=== PATIENT | male | born 1980 | race Caucasian/White ===

== ENCOUNTER 2017-04-18 16:07 | Emergency (ER) | payer BC ==
[~2017-04-18] VITALS: Ht 175.3 cm; Wt 80.9 kg
[2017-04-18] MEDS ORDERED: ATIVAN1 MG PO (16:53)
[2017-04-18 17:41] VITALS: BP 115/98
== END 2017-04-18 18:04 | disposition home or self-care (01) ==
LOC: EME 16:07
DX: F10.20 Alcohol dependence, uncomplicated (principal); F17.200 Nicotine dependence, unspecified, uncomplicated
CPT/HCPCS: 99281; 99284

== ENCOUNTER 2018-06-04 23:06 | Emergency (ER) | payer BC ==
[~2018-06-04] VITALS: Ht 175.3 cm; Wt 99.3 kg
[~2018-06-04 23:06] MED LIST: ATIVAN1 MG PO
[2018-06-05 00:29] LABS: HEMATOCRIT 40.4 % (38.0-50.0); MCH 32.6 PG (29.0-34.0); MCHC 34.7 G/DL (30.0-36.0); MCV 94.2 FL (86-99); PLATELET COUNT 242 K/uL (156-360); RBC DIS.WIDTH-CV 12.4 % (11.8-14.6); RED BLOOD COUNT 4.29 M/uL (4.00-5.50); WHITE BLOOD COUNT 8.3 K/uL (4.1-10.2)
[2018-06-05 00:37] LABS: D-DIMER ELISA < 150.00 ng/mLDDU (<230); PTT 26.5 SEC (25-37)
[2018-06-05 00:42] LABS: ALBUMIN 4.7 g/dL (3.2-4.8); CHLORIDE 105 mEq/L (99-109); POTASSIUM 3.9 mEq/L (3.7-5.4); SODIUM 140 mEq/L (136-147)
[2018-06-05 00:44] LABS: GLUCOSE 99 mg/dL (70-99)
[2018-06-05 00:45] LABS: APPEARANCE CLEAR ((CLEAR)); BILIRUBIN NEGATIVE; BLOOD NEGATIVE; COLOR STRAW ((YELLOW)); GLUCOSE (STRIP) NEGATIVE; KETONES NEGATIVE; LEUKOCYTES NEGATIVE; NITRITE NEGATIVE; PROTEIN (STRIP) NEGATIVE; SPECIFIC GRAVITY 1.018 (1.000-1.030); UCUL ADDED? NO; UROBILINOGEN 0.2 MG/DL (0.2-1.0)
[2018-06-05 00:45] LABS: TOTAL PROTEIN 7.3 g/dL (6.4-8.3)
[2018-06-05 00:46] LABS: TOTAL BILIRUBIN 0.6 mg/dL (0.0-1.0)
[2018-06-05 00:47] LABS: SERUM ETHYL ALCOHOL < 10 mg/dL
[2018-06-05 00:48] LABS: ALKALINE PHOSPHATASE 61 IU/L (3-129); GFR ESTIMATE (CALCULATED) > 59 mL/min/ (58.99-99999)
[2018-06-05 00:49] LABS: UREA NITROGEN (BUN) 17 mg/dL (9-23)
[2018-06-05 00:50] LABS: AST (GOT) 53 IU/L (2-34)
[2018-06-05 00:51] LABS: ALT (GPT) 117 IU/L (3-49)
[2018-06-05 00:57] LABS: TROP-I INTERPRETATION NEGATIVE; TROPONIN-I < 0.01 ng/mL (0.0-0.30)
[2018-06-05 03:51] VITALS: BP 135/97
== END 2018-06-05 03:52 | disposition home or self-care (01) ==
LOC: EME 23:06
PROVIDERS: Emergency Medicine
DX: R55 Syncope and collapse (principal); E86.0 Dehydration; F17.200 Nicotine dependence, unspecified, uncomplicated
CPT/HCPCS: 71046; 80053; 81003; 83605; 84484; 85027; 85379; 85610; 85730; 93005; 99281; 99285; G0480; J7030